=== PATIENT | female | born 2000 | race Caucasian/White ===

== ENCOUNTER 2021-07-16 21:17 | Emergency (ER) | payer OTHER ==
[2021-07-16 22:16] LABS: BASOPHIL 0.3 % (0-2); EOSINOPHIL 0.3 % (0-5); HCT 34.3 % (37.0-47.0); LYMPHOCYTE 20.8 % (15-48); MCH 20.9 pg (25.0-31.0); MCHC 29.2 g/dL (32.0-36.0); MCV 71.6 fL (78.0-100.0); MONOCYTE 4.7 % (0-12); MPV 10.5 fL (6.0-9.5); NEUTROPHIL 73.6 % (41-80); NRBC 0; PLT 290 K/uL (150-400); RBC 4.79 M/uL (4.20-5.40); RDW 15.9 % (11.5-14.0); WBC 15.3 K/uL (4.0-10.5)
[2021-07-16 22:34] LABS: BILIRUBIN - TOTAL 0.3 mg/dL (0.2-1.0); BUN/CREAT RATIO (CALC) 14.9 RATIO; CREATININE 0.67 mg/dL (0.51-0.95); GLOBULIN (CALCULATION) 3.9 g/dL; POTASSIUM 3.6 mmol/L (3.5-5.1); TOTAL PROTEIN 7.9 g/dL (6.4-8.2)
[2021-07-16 23:51] LABS: BILIRUBIN NEGATIVE (NEGATIVE); BLOOD TRACE-INTACT Ery/uL (NEGATIVE); CLARITY CLEAR (CLEAR); COLOR YELLOW (YELLOW); GLUCOSE (U) NORMAL (NORMAL); LEUKOCYTES 1+ Leu/uL (NEGATIVE); NITRITE NEGATIVE (NEGATIVE); PROTEIN NEGATIVE (NEGATIVE); SPECIFIC GRAVITY 1.015 (1.001-1.030); UROBILINOGEN 0.2 mg/dL (0.2-1.0); pH 5.5 (5.0-9.0)
[2021-07-16 23:53] LABS: AMPHETAMINES NEGATIVE (NEGATIVE); BARBITURATES NEGATIVE (NEGATIVE); ECSTASY (MDMA) NEGATIVE (NEGATIVE); MARIJUANA (THC) NEGATIVE (NEGATIVE); METHADONE NEGATIVE (NEGATIVE); OPIATES NEGATIVE (NEGATIVE); OXYCODONE NEGATIVE (NEGATIVE)
[2021-07-16 23:56] LABS: BACTERIA 1+; URINARY RBC RARE
[2021-07-16 23:58] LABS: TRANSITIONAL EPITHELIAL CELLS RARE
== END 2021-07-17 00:03 | disposition home or self-care (01) ==
LOC: FER 21:17
PROVIDERS: Nurse Practitioner Family
DX: S20.212A Contusion of left front wall of thorax, initial encounter (principal); S30.1XXA Contusion of abdominal wall, initial encounter; M25.512 Pain in left shoulder; V48.5XXA Car driver injured in noncollision transport accident in traffic accident, initial encounter; Y92.410 Unspecified street and highway as the place of occurrence of the external cause
CPT/HCPCS: 36415; 71260; 73030; 80053; 80305; 81001; 82150; 83690; 85025; J7030; Q9967